=== PATIENT | female | born 1975 | race Caucasian/White ===

== ENCOUNTER 2023-06-24 16:00 | Outpatient (RCR) | payer OTHER ==
[~2023-06-24 16:00] MED LIST: ASPIRIN81 MG PO; GABAPENTIN300 MG PO; LEXAPRO20 MG PO; MELOXICAM7.5 MG PO; PANTOPRAZOLE SO20 MG PO; ROPINIROLE HC0.25 MG PO; TRAMADOL HCL100 MG PO; VIT B12 INJ
== END 2023-06-30 ==
LOC: OT 16:00
PROVIDERS: ATTEND Orthopaedic Surgery Hand Surgery
DX: G56.01 Carpal tunnel syndrome, right upper limb (principal); G56.02 Carpal tunnel syndrome, left upper limb

== ENCOUNTER 2023-07-06 13:41 | Outpatient (RCR) | payer OTHER | END 2023-07-30 | LOC: OT 13:41 | PROVIDERS: ATTEND Orthopaedic Surgery Hand Surgery | DX: G56.03 Carpal tunnel syndrome, bilateral upper limbs (principal) ==